=== PATIENT | female | born 1995 ===

== ENCOUNTER 2018-02-24 03:28 | Inpatient (IN) | payer OTHER ==
[2018-02-24] VITALS (355 sets, daily range): BP systolic 121–138; BP diastolic 70–98; PULSE 81–120; TEMP 97.4–98.3; O2SAT 90–100
[~2018-02-24] VITALS: Ht 165.1 cm; Wt 91.4 kg
[2018-02-24] MEDS ORDERED: PRILOSEC 20MG20 MG PO (05:20)
[2018-02-24] MEDS ORDERED: NORVASC 5MG5 MG/TAB PO (05:22)
[2018-02-25] VITALS (159 sets, daily range): BP systolic 109–141; BP diastolic 35–93; PULSE 78–100; TEMP 97.5–98.7; O2SAT 88–99
[2018-02-25 05:36] LABS: HEMOGLOBIN 12.4 g/dl (12.5-16.0); MEAN CELL VOLUME 88 fl (80.0-100.0); MEAN CORPUSCULAR HEMOGLOBIN 30 pg (27.0-31.0); MEAN CORPUSCULAR HGB CONC 34 g/dl (33.0-37.0); MEAN PLATELET VOLUME 9.1 fl (7.4-10.4); PLATELET COUNT 336 K/mm3 (130-400); RED BLOOD COUNT 4.11 M/mm3 (4.10-5.30); REDCELL DISTRIBUTION WIDTH-CV 12.5 % (11.5-14.5)
[2018-02-25 05:51] LABS: ALBUMIN 3.9 gm/dL (3.5-5.0); BILIRUBIN,TOTAL 1.1 mg/dL (0.0-1.0); CALCIUM 8.6 mg/dL (8.4-10.2); CREATININE, serum 0.44 mg/dL (0.52-1.25); MAGNESIUM 2.1 mg/dL (1.6-2.3); POTASSIUM 3.5 mmol/L (3.4-5.0); TOTAL PROTEIN 7.4 gm/dL (6.4-8.2)
[2018-02-25 05:57] LABS: BAND 6 % (0-10); BASOPHIL 1 % (0-2); EOSINOPHIL 4 % (0-4); LYMPHOCYTE 38 % (20.0-51.0); NEUTROPHILS 50 % (42.0-75.2)
[2018-02-25 05:58] LABS: PLATELET ESTIMATE NORMAL (NORMAL)
[2018-02-25] MEDS ORDERED: PHENERGAN 25 TA25 MG PO (16:14)
[2018-02-25] MEDS ORDERED: TYLENOL 500MG500 MG PO (16:15)
== END 2018-02-25 17:25 | disposition home or self-care (01) | DRG 419 ==
LOC: ICU 03:28 → JCC 04:08 → ICU 04:08 → JCC 02-25 08:27
PROVIDERS: Internal Medicine; Surgery
PROC: 0FC98ZZ Extirpation of Matter from Common Bile Duct, Via Natural or Artificial Opening Endoscopic (ICD-10-PCS; 2018-02-24)
PROC: BF101ZZ Fluoroscopy of Bile Ducts using Low Osmolar Contrast (ICD-10-PCS; 2018-02-25)
PROC: 0FT44ZZ Resection of Gallbladder, Percutaneous Endoscopic Approach (ICD-10-PCS; principal; 2018-02-25 11:30)
DX: K80.66 Calculus of gallbladder and bile duct with acute and chronic cholecystitis without obstruction (principal); I10 Essential (primary) hypertension
CPT/HCPCS: 99222-AI; 99239; C1769; J1100; J1885; J2405; J2704; J2710; J2765; J3010; J7030; J7120; Q9967